=== PATIENT | female | born 1985 | race Caucasian/White ===

== ENCOUNTER 2024-10-03 13:50 | Outpatient (REF) | payer BC, SELFPAY ==
--- NOTE | ~2024-10-03 | XR_ITS ---
EXAMINATION: XR FOOT, LEFT CLINICAL INFORMATION: M79.672 - Pain in left foot COMPARISON: None available. TECHNIQUE: AP, lateral, and oblique views of the left foot. FINDINGS: No acute cortical disruption or malalignment. No lytic or blastic lesions. 2 mm well-corticated calcification in the medial aspect of the soft tissues fifth metatarsal head. No joint effusion. No subcutaneous emphysema. XR/XR foot LT min 3V IMPRESSION: No acute fracture or dislocation. 2 mm nonspecific, well-corticated calcification, soft tissues medial to the fifth metatarsal head. Electronically signed by: Yvon Morrison MD 10/03/2024 02:56 PM EDT
== END 2024-10-03 13:51 | disposition home or self-care (01) ==
LOC: HO.HOSX 13:50
PROVIDERS: Visit Provider Physician Assistant
DX: S93.515A Sprain of interphalangeal joint of left lesser toe(s), initial encounter (principal); Z79.899 Other long term (current) drug therapy; W22.8XXA Striking against or struck by other objects, initial encounter
CPT/HCPCS: 73630

== ENCOUNTER 2024-10-03 13:50 | Outpatient (AMB) | payer BC, SELFPAY ==
--- NOTE | 2024-10-03 14:25 | A.OFFVIS_ITS ---
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 Patient was seen at [facility] walk in clinic the following day after she stubbed her toe due to pain and swelling. She had x-rays, annabel tape was applied to her 4th and 5th toe. She was recommended to follow up care with orthopedics. Patient reports a her pain has improved however she has pain with applying full weight or if she accidentally bumps her toe. 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 Injury occurred on 09/22/2024. She was seen in urgent care where x-rays were obtained and she was encouraged to annabel tape the toe and follow up in our office. She states the pain is improv ing and she has no concerns today. [facility] Surgical History (Updated 10/03/24 @ 14:35 by ANGELA Morrison) Hx of section History of nasal surgery Hx of hysterectomy History of cholecystectomy Social History (Updated 10/03/24 @ 14:35 by ANGELA Morrison) Patient Tobacco Use Status: Former Tobacco user Current occupational status: employed Current occupation: [employer] Review of Systems Const All systems reviewed & are unremarkable except as noted in HPI and below Physical Exam Vital Signs: BMI result Body Mass Index 29.3 Const General: cooperative and no acute distress Orientation/consciousness: patient oriented x3 Resp Effort & Inspection: normal respiratory effort and able to speak in complete sentences Cardio Peripheral pulses: Peripheral pulses 2+ throughout Neuro General: patient oriented x3 Extrem Other: Left foot small toe is normal to inspection. No swelling. Mild tenderness with varus stress testing. No laxity. Neurovascularly intact. Office Procedures AMB Fracture Care Fracture Billing Code: Fracture Billing Code Results Reviewed Results Reviewed: X-rays of the left foot obtained in the office today and reviewed by me show a subtle avulsion fragment over the IP joint of the toe. Assessment & Plan Assessment & Plan (1) Sprain, IP, toe, fifth left: Code(s): S93.515A - Sprain of interphalangeal joint of left lesser toe(s), initial encounter Category: Medical Plan: I encouraged her to avoid impact activities but she can resume as tolerated. She can annabel tape the 4th and 5th toe as needed. If there is any questions or concerns she will contact us to discuss otherwise follow up as needed. Orders: Orders XR foot LT min 3V Today M79.672 - Pain in left foot Coding Level of Care Code New Pt Level 3 (03260) Complex EM visit Add On G2211 Diagnoses Sprain, IP, toe, fifth left S93.515A CPT Codes Fracture Care - Fracture Billing Code: Fracture Billing Code ([id number])
[2024-10-03 14:36] VITALS: BMI 29.3
--- OUTSIDE RECORDS SUMMARY | 2024-10-03 14:41 | XMS_ITS | Encounter Summary ---
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 Name Role Phone Rose Beltre NP Primary Care Provider [phone] Encounter Details Date Type Department Care Team (Late st Contact Info) Description 03/26/2022 Lab Requisition [facility] [address] [place] [address] Jean-Pierre Morejon MD [address] [place] [address] [address] [place] [address] Urinary tract infection, site not specified Social History Tobacco Use Types Packs/Day Years Used Date Smoking Tobacco: Former Cigarettes Q uit: 01/22/2013 E-Cigarettes Vapor Smokeless Tobacco: Never Comments:: Alcohol Use Standard Drinks/Week Comments Yes 0 (1 standard drink = 0.6 oz pur e alcohol) socially/rarely Comments No Sex and Gender Information Value Date Recorded Sex Assigned at Female Legal Sex Female 12:59 AM EDT Gender Identity Female Sexual Orientation Straight 08/28/2024 12 :09 PM EDT documented as of this encounter Plan of Treatment Not on file documented as of this encounter Procedures * Due to [place] law, this organization might not be sharing negative HIV tests. Procedure Name Priority Date/Time Associated Diagnosis Comments URINE CULTURE, ROUTINE Routine 03/26/2022 12:00 PM EST Urinary tract infection, site not specified documented in this encounter Results * Due to [place] law, this organization might not be sharing negative HIV tests. * Urine Culture, Routine (03/26/2022 12:00 PM EST) Urine Culture Workup 50,000-75 ,000 CFU/mL [place] [facility] 03/28/2022 12:31 PM EST [facility] Comment:Mixed Gram positive organisms with no predominant organism present. Consistent with urogenital contamination after 24 hours. Urine Urine specimen collection, clean catch / Unknown 03/26/2022 12:00 PM EST 03/26/2022 6:40 PM EST us Jean-Pierre Morejon MD LAB MICROBIOLOGY - GENERAL ORDER SHELL Final Result [facility] [address] [place] [id number], documented in this encounter Visit Diagnoses Diagnosis Urinary tract infection, site not specified documented in this encounter Care Teams Stud Sheep Farmer Relationship Specialty Start Date End Date Rose Beltre NP [address] [place] [id number] PCP - General 11/04/21 documented as of this encounter
--- OUTSIDE RECORDS SUMMARY | 2024-10-03 14:41 | XMS_ITS | Clinical Summary ---
Author Organization 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 Name Role Phone Unavailable Primary Care Provider Unavailabl e Social History Tobacco Use Types Packs/Day Years Used Date Smoking Tobacco: Never Assessed Comments Unknown Sex and Gender Information Value Date Recorded Sex Assigned at Not on file Legal Sex Female 7:13 AM EST Gender Identity Not on file Sexual Orientation Not on file Plan of Treatment Health Maintenance Due Date Last Done Comments Depression: Screening Annual ly using PHQ-2/9 in Adults 18 yrs or above (or HM Modifier)([facility]) 2005 Hepatitis C Virus Infection in Adolescents and Adults: Screening (or Modifier) ([facility]) 2005 SDOH Screening Reminder: Annually for all adults ([facility]) 2005 Tobacco Smoking Cessation: i n Adults excluding Women: Behavioral and Pharmacotherapy Interventions ([facility]) 2005 DTaP/Tdap/Td Vaccines ([facility]) (1 - Tdap) 2006 Cervical Cancer Screenin-65 yrs of age (or Modifier) 2008 Cervical Cancer Screening: P ap every 3 yrs pts age 21-65 2008 Cervical Cancer: Pap Screeni ng with Modifier timing ([facility]) 2008 Cervical Cancer: hrHPV alone or with cotesting Pap for Pts 30-65yrs screening every 5yrs ([facility]) 2008 COVID-19 Vaccine Screening: Initial Series and Booster Status ([facility]) ( - 2023- season) 2023 07/09/2020, 06/10/2020 Flu Vaccination: Yearly for ages 18mos through 64 years (or Modifier)([facility]) 10/27/2024 Zoster/Shingles Vaccine Seri es Screening: Adults aged 18+ yrs (or HM Modifiers)([facility]) (1 of 2) 2037 Pneumococcal Vaccination Screening: Pts 0-19 & 19-49 yrs of age ([facility]) Aged Out No longer eligible based on patient's age to complete this topic Medical Devices Not on file [place] [address] [address] [place] [address]
== END 2024-10-03 15:33 | disposition home or self-care (01) ==
LOC: HO.HOS 13:50
PROVIDERS: Visit Provider Physician Assistant
DX: S93.515A Sprain of interphalangeal joint of left lesser toe(s), initial encounter (principal)
CPT/HCPCS: 99203

== ENCOUNTER → 2024-10-03 14:43 | Outpatient (BNV) | payer BC, SELFPAY | PROVIDERS: Visit Provider Radiology Diagnostic Radiology | DX: M61.472 Other calcification of muscle, left ankle and foot (principal) | CPT/HCPCS: 73630 ==